=== PATIENT | female | born 1935 | race Caucasian/White ===

== ENCOUNTER 2016-12-06 13:42 | Emergency (ER) | payer OTHER ==
--- NOTE | 2016-12-06 13:58 | CPEKG ---
Heart Rate: 73 RR Interval: 822 P-R Interval: 164 QRSD Interval: 78 QT Interval: 416 QTC Interval: 459 P [place]: 74 QRS [place]: -34 T Wave [place]: 119 EKG Severity - ABNORMAL ECG - EKG Impression: SINUS RHYTHM EKG Impression: PROBABLE LEFT ATRIAL ABNORMALITY EKG Impression: LEFT AXIS DEVIATION EKG Impression: LEFT VENTRICULAR HYPERTROPHY Electronically Signed By: Antonino Martínez 06-Dec-2016 14:47:12
--- NOTE | 2016-12-06 14:07 | EDPHY ---
HPI/HX/ROS/PE/MDM Narrative: CHIEF COMPLAINT: Nausea and vomiting. HPI: This patient is an 81 y/o female arriving with her daughter via EMS complaining of acute onset vomiting and nausea with associated weakness that has since resolved. She states this morning she began vomiting after consuming a turmeric supplement and that this has happened "a million times" when taking vitamins. She reports once she begins vomiting, she cannot stop, and has associated weakness, chills, and diaphoresis. When these episodes occur, she generally requires abortive treatment at the ED. EMS administered 4mg IV Zofran that completely resolved her symptoms and upon initial assessment she reports she is "ready to walk out." She denies chest pain, fever, loss of consciousness , abdominal pain, recent antibiotic use, hematemesis, and hematochezia. REVIEW OF SYSTEMS: Aside from elements discussed in the HPI, a comprehensive 10- point review of systems was reviewed and is negative. PMH: Previous episodes of vomiting, hearing loss SOCIAL HISTORY: Daughter at bedside, originally from [place]. PHYSICAL EXAM: General:Patient is alert, in no acute distress. ENT:Eyes are normal to inspection. ENT inspection normal. Neck: Normal inspection. Full range of motion. Respiratory:No respiratory distress. Breath sounds normal bilaterally. Cardiovascular: Regular rate and rhythm. Strong peripheral pulses. Normal cap refill. Abdomen:The abdomen is nontender to palpation. There are no peritoneal signs. There are normal bowel sounds. Back: Normal to inspection. No tenderness to palpation. Skin: Normal color. No rash. Warm and dry. Extremities: Normal appearance. Full range of motion. Neuro: Oriented x3. Normal motor function. Normal sensory function. (Antonino Martínez) ED Course: This patient is an 81 y/o female who presents today following sudden onset uncontrollable vomiting following consumption of turmeric tablets this morning. She has had several previous episodes of similar symptoms after consuming vitamins. On initial assessment, she is completely asymptomatic and states she is ready to go home. Her abdomen is benign and exam is unremarkable. I offered further workup to determine the cause of her symptoms, which she declined. We discussed specific return precautions. I have written her a script for ODT Zofran to use in event of future episodes of nausea. She is comfortable with this plan. The 12 lead EKG was interpreted by myself. See hard copy and/or "tracemaster" electronic copy for interpretation. Sinus rhythm with left atrial abnormality. 14:41 As RN was obtaining another set of vital signs and temp, she reported that the patient is now shivering, having chills, and generally feeling poorly. We will hold on discharge. Plan for IV fluids and labs. I have signed the patient out to Dr. Sutton at 1500 pending essentially full workup. (Mauricio,Antonino Davila) 1500: The patient is signed out to me at change of shift by Dr. Martínez. I reviewed the case with Dr. Martínez. I reviewed Dr. Martínez needs note. I went personally evaluated the patient. She states that she thinks her symptoms are related to her taking tumor this morning. She used to have this happen to her frequently when taking vitamins. She stopped 1 year ago. She decided to take tumor care again today and had similar symptoms. When she initially arrived in the emergency department she states she was feeling much better. She then developed mild chills. She has no specific complaint of chest pain, shortness of breath, abdominal pain, nausea or vomiting. I agree with Dr. Martínez documentation. I reviewed the patient[place] laboratory [place] [address]. Her chemistry panel showed a mildly low bicarb and a elevated anion gap. Abdominal x-ray: The patient has multiple air-fluid levels. This could represent ileus or early obstruction. I discussed the results with the patient. On recheck the patient was doing well. She denies any abdominal pain. She denies shortness of breath or cough. Based on the patient's presentation, x-rays and laboratory findings I felt the patient should be admitted for observation. I discussed this with the patient and answered all her questions. Blood cultures were added. I discussed admission with the hospitalist service, Dr. Contreras. He accepted the patient. 1700: Dr. Contreras came to the emergency department to evaluate the patient. After his evaluation he requested we discharge patient home. He arrange close follow-up with Dr. Musa. He read the patient prescriptions. 17 10: I when re-evaluated the patient. She states she tolerated oral intake. She was feeling better. On repeat examination her abdomen was soft, nontender nondistended. She states she understands the recommendation by me for admission. She also understands the Dr. Contreras felt comfortable having her discharged home. The patient was competent. She was given warnings prior to leaving. She will return with worsening symptoms. (Diana Sutton) - Data Points Imaging Results: Imaging Impressions Abdomen X-Ray 12/06/16 14:43 Impression: 1. No significantly dilated loops of bowel with scattered air-fluid levels. Rule out mild ileus. If indicated, consider CT imaging for further characterization. Laboratory Results: Laboratory Results 12/06/16 13:43 12/06/16 13:43 12/06/16 12/06/16 13:43 13:43 WBC 17.24 10^3/uL H 10^3/uL (3.80-9.50) RBC 5.36 10^6/uL H 10^6/uL (4.18-5.33) Hgb 16.6 g/dL H g/dL (12.6-16.3) Hct 48.7 % H % (38.0-47.0) MCV 90.9 fL fL (81.5-99.8) MCH 31.0 pg pg (27.9-34.1) MCHC 34.1 g/dL g/dL (32.4-36.7) RDW 12.6 % % (11.5-15.2) Plt Count 337 10^3/uL 10^3/uL (150-400) MPV 10.8 fL fL (8.7-11.7) Neut % (Auto) 68.2 % % (39.3-74.2) Lymph % (Auto) 26.7 % % (15.0-45.0) [place] % (Auto) 4.1 % L % (4.5-13.0) Eos % (Auto) 0.2 % L % (0.6-7.6) Baso % (Auto) 0.3 % % (0.3-1.7) Nucleat RBC Rel Count 0.0 % % (0.0-0.2) Absolute Neuts (auto) 11.75 10^3/uL H 10^3/uL (1.70-6.50) Absolute Lymphs (auto) 4.60 10^3/uL H 10^3/uL (1.00-3.00) Absolute Monos (auto) 0.71 10^3/uL 10^3/uL (0.30-0.80) Absolute Eos (auto) 0.04 10^3/uL 10^3/uL (0.03-0.40) Absolute Basos (auto) 0.06 10^3/uL 10^3/uL (0.02-0.10) Absolute Nucleated RBC 0.00 10^3/uL 10^3/uL (0-0.01) Immature Gran % 0.5 % % (0.0-1.1) Seg Neutrophils % 38 % % Band Neutrophils % 26 % % Lymphocytes % 32 % % Monocytes % 2 % % Metamyelocytes % 1 % % Myelocytes % 1 % % Immature Gran # 0.08 10^3/uL 10^3/uL (0.00-0.10) Absolute Seg Neuts 6.55 10^/uL H 10^/uL (1.70-6.50) Absolute Band Neuts 4.48 10^3/uL H 10^3/uL (0.00-0.70) Absolute Lymphocytes 5.52 10^3/uL H 10^3/uL (1.00-3.00) Absolute Monocytes 0.34 10^3/uL 10^3/uL (0.30-0.80) Absolute Metamyelocyte 0.17 10^3/mL H 10^3/mL (0.00-0.00) Absolute Myelocytes 0.17 10^3/mL H 10^3/mL (0.00-0.00) RBC/WBC/PLT Morphology NORMAL (NORMAL) Platelet Estimate ADEQUATE (ADEQ) Smear Review By Pending Sodium 142 mEq/L mEq/L (134-144) Potassium 4.0 mEq/L mEq/L (3.5-5.2) Chloride 102 mEq/L mEq/L (97-110) Carbon Dioxide 21 mEq/l L mEq/l (22-31) Anion Gap 19 mEq/L H mEq/L (8-16) BUN 23 mg/dL mg/dL (7-23) Creatinine 0.9 mg/dL mg/dL (0.6-1.0) Estimated GFR > 60 Glucose 128 mg/dL H mg/dL (70-100) Calcium 10.8 mg/dL H mg/dL (8.5-10.4) Phosphorus 2.9 mg/dL mg/dL (2.5-4.5) Total Bilirubin 1.0 mg/dL mg/dL (0.1-1.4) Conjugated Bilirubin 0.5 mg/dL mg/dL (0.0-0.5) Unconjugated Bilirubin 0.5 mg/dL mg/dL (0.0-1.1) AST 33 IU/L IU/L (14-46) ALT 33 IU/L IU/L (9-52) Alkaline Phosphatase 83 IU/L IU/L (38-126) Troponin I < 0.012 ng/mL ng/mL (0-0.034) Total Protein 9.0 g/dL H g/dL (6.3-8.2) Albumin 5.2 g/dL H g/dL (3.5-5.0) Lipase 99.0 IU/L IU/L (23-300) Medications Given: Discontinued Medications Sodium Chloride (Ns) 1,000 mls @ 0 mls/hr IV ONCE ONE PRN Reason: Wide Open Stop: 12/06/16 14:43 Last Admin: 12/06/16 14:44 Dose: 1,000 mls Ondansetron HCl (Zofran) 4 mg IVP EDNOW ONE Stop: 12/06/16 14:43 Last Admin: 12/06/16 14:55 Dose: 4 mg General Time Seen by Provider: 12/06/16 14:05 Initial Vital Signs: Initial Vital Signs Heart Rate 78 12/06/16 13:42 Respiratory Rate 16 12/06/16 13:42 Blood Pressure 145/96 H 12/06/16 13:42 O2 Sat (%) 93 12/06/16 13:42 O2 Delivery Mode Room Air Allergies/Adverse Reactions: morphine Allergy (Verified 06/25/16 14:52) Home Medications: Medication Instructions Recorded Amlodipine Besylate 06/25/16 Hydrocodone/APAP 5/325 [[place] 1 - 2 tab PO Q4H PRN #10 tab 06/25/16 5/325] Lisinopril 06/25/16 Ondansetron HCl [Zofran] 4 mg PO Q4-6PRN PRN #10 tablet 06/25/16 Ondansetron Odt [Zofran Odt] 4 mg PO Q4PRN PRN #10 tab 12/06/16 Departure - Departure Disposition: Home, Routine, Self-Care Clinical Impression: Ileus Nausea & vomiting Qualifiers: Vomiting type: bilious vomiting Qualified Code(s): R11.14 - Bilious vomiting Leukocytosis Qualifiers: Leukocytosis type: other Qualified Code(s): D72.828 - Other elevated white blood cell count Condition: Good Instructions: Ondansetron (By mouth), Acute Nausea and Vomiting (ED) Additional Instructions: 1. Take Zofran as prescribed for nausea. Place the tablet under your tongue and let it dissolve. 2. Increase fluid intake. 3. Follow up with your primary care provider for symptoms unresolved in 2-3 days. 4. Return to the ED for recurrent vomiting and nausea, fever, pain, bloody bowel movements, or other worsening of condition. Return with increasing abdominal pain, nausea, vomiting, weakness or any other concerns. You need close follow-up with Dr. Musa. Call her office on Wednesday to make an appointment. Referrals: Amy Musa MD [Primary Care Provider] - 12/07/16 Prescriptions: Ondansetron Odt [Zofran Odt] 4 mg PO Q4PRN PRN #10 tab PRN Reason: Nausea Report Scribed for: Antonino Martínez Report Scribed by: Rebecca Sloan Date of Report: 12/06/16 Time of Report: 14:07 Physician Review and Approval Statement: Portions of this note were transcribed by an ED scribe. I personally performed the history, physical exam, and medical decision making; and confirm the accuracy of the information in the transcribed note.
[2016-12-06] MEDS ORDERED: ONDANSETRON 4 MG/2 ML VIAL IVP ONE (14:42)
[2016-12-06] MEDS ORDERED: NS 1,000 ML IV ONE (14:42)
[2016-12-06 14:54] LABS: ALANINE AMINOTRANSFERASE 33 IU/L (9-52); ALBUMIN 5.2 g/dL (3.5-5.0); ALKALINE PHOSPHATASE 83 IU/L (38-126); ANION GAP 19 mEq/L (8-16); ASPARTATE AMINOTRANSFERASE 33 IU/L (14-46); BILIRUBIN-CONJUGATED 0.5 mg/dL (0.0-0.5); BILIRUBIN-UNCONJUGATED 0.5 mg/dL (0.0-1.1); CALCIUM 10.8 mg/dL (8.5-10.4); CARBON DIOXIDE 21 mEq/l (22-31); CHLORIDE 102 mEq/L (97-110); CREATININE 0.9 mg/dL (0.6-1.0); GLOMERULAR FILTRATION RATE > 60; GLUCOSE 128 mg/dL (70-100); SODIUM 142 mEq/L (134-144)
[2016-12-06 14:58] LABS: % IMMATURE GRANULYOCYTES 0.5 % (0.0-1.1); ABSOLUTE IMMATURE GRANULOCYTES 0.08 10^3/uL (0.00-0.10); ADD DIFF? NO; ADD MORPH? NO; ADD SCAN? YES; ATYPICAL LYMPHOCYTE FLAG 10 (0-99); FRAGMENT RBC FLAG 0 (0-99); HEMATOCRIT 48.7 % (38.0-47.0); HEMOGLOBIN 16.6 g/dL (12.6-16.3); LIPEMIA HEMOLYSIS FLAG 90 (0-99); MEAN CELL HEMOGLOBIN CONCENTR. 34.1 g/dL (32.4-36.7); MEAN CELL VOLUME 90.9 fL (81.5-99.8); MEAN PLATELET VOLUME 10.8 fL (8.7-11.7); PLATELET CLUMPS FLAG 10 (0-99); PLATELET COUNT 337 10^3/uL (150-400); RED BLOOD CELL COUNT 5.36 10^6/uL (4.18-5.33); RED CELL DISTRIBUTION WIDTH 12.6 % (11.5-15.2)
[2016-12-06 15:05] LABS: TROPONIN I < 0.012 ng/mL (0-0.034)
[2016-12-06 15:16] LABS: LEFT SHIFT FLG 200 (0-99)
[2016-12-06 15:33] VITALS: TEMP 97.3
[2016-12-06 15:34] LABS: SCAN POSITIVE
[2016-12-06 15:37] LABS: PLATELET ESTIMATE ADEQUATE (ADEQ)
[2016-12-06] MEDS ORDERED: ONDANSETRON DISINTEGRATING 4 MG TAB PO PRN (16:13)
[2016-12-06] MEDS ORDERED: METOCLOPRAMIDE 10 MG/2 ML VIAL IVP PRN (16:13)
[2016-12-06] MEDS ORDERED: ONDANSETRON 4 MG/2 ML VIAL IVP PRN (16:13)
[2016-12-06] MEDS ORDERED: METOCLOPRAMIDE 10 MG TAB PO PRN (16:13)
[2016-12-06] MEDS ORDERED: ACETAMINOPHEN 325 MG TAB PO PRN (16:13)
[2016-12-06] MEDS ORDERED: NS 1,000 ML IV SCH (16:15)
--- NOTE | 2016-12-06 17:01 | PDCONSULT ---
Sr. Manager Note: Consult H&P PCP: Dr. Musa Chief complaint: acute vomiting HPI: 81-year-old female presenting with acute vomiting characterized as bilious with associated nausea, generalized weakness, chills, visible diaphoresis. Onset of symptoms was on the day of this presentation and duration was persistent thereafter until the symptoms were alleviated by Zofran in the emergency department. The patient received IV fluids and she reports that her symptoms have improved. Her last bowel movement was on the day of presentation and was characterized as liquid. Prior to her onset of symptoms, the patient reports that she had taken a couple pills of tumeric, which she does not utilize regularly. She reports that in the past she has had GI symptoms when she takes vitamins and supplements. Review of systems: Positive for nausea, vomiting, generalized weakness, chills , visible diaphoresis, all other 10 point review of systems otherwise negative. Past medical history: Hypertension, right hip fracture Past surgical history: February of 2015 right hip surgery Home medications: currently on reconciled, previously have include lisinopril and amlodipine Social history: Patient does not drink alcohol, does not smoke, she lives locally, she is independent in her ADLs Family history: Patient's daughter of cancer, unknown origin Allergies: Morphine, unclear reaction Physical exam: Heart rate 78, systolic blood pressure 145, respirations 16, O2 sat 93% on room air, temperature initially 34.6 degree C, subsequently 36.3 degree C on recheck; rate is regular, regular rhythm, no murmurs or gallops; Abdomen is soft mildly distended, nontender, bowel sounds are active but quiet; patient is pain free, alert awake oriented x3, no apparent distress Data: White blood cell count 67043, hemoglobin 16.6, total protein 9, albumin 5.2, serum bicarb 21, creatinine 0.9, potassium 4, anion gap 19, troponin negative, abdominal x-ray demonstrating diffuse air-fluid levels without focal area of obstruction, consistent with ileus, EKG demonstrating normal sinus mechanism, similar to prior, outside records include 02/07/2016 HIDA scan demonstrating no cholecystitis but gallbladder dyskinesis, white blood cell count from 06/25/16 9,200 Assessment: 81-year-old female presents with acute vomiting and chills in the setting of ileus, possible gastroenteritis Plan: 1. Vomiting. Most likely secondary to either ileus or possible gastroenteritis , resulting in stress demargination and leukocytosis without clear evidence of infection. Her symptoms coincided with ingestion of tumeric, but I do not believe that she is experiencing acute tumeric toxicity, as her symptoms have subsided with supportive care including IV fluids and Zofran. Although her abdominal x-ray did demonstrate diffuse air-fluid levels, this may be secondary to GI irritation and no overt ileus, as the patient has moved her bowels within the last several hours and she is currently not expressing any abdominal tenderness on our exam. It may be that the patient simply has gastroenteritis with coincidental concomitant ingestion of supplement, resulting in the above mentioned symptoms. - recommend dietary trial of oral solids and liquids in the emergency department if the patient is successful, she will discharge home - I have advised the patient that clear liquids and bland foods should be for primary substance for the next 24-48 hours to ensure that whenever GI irritants she has been experiencing is allowed to clear without further stress or stimulation - we have provided the patient with as needed Zofran to use supportively at home 2. Metabolic Acidosis. Acute, mild anion gap, 2/2 GI loses - I have encouraged the patient to have repeat labs drawn in 48 hours with follow-up by her primary care provider to ensure that her leukocytosis has resolved and her mild anion gap acidosis has completely resolved as well - it should be noted that although her anion gap is 19 this is only marginally elevated from would be anticipated given that the anion gap is derived from patient's total albumin level which is elevated at 5.2 at this time; consequently, the patient's anticipated anion gap is between 15 and 16 and, with a gap of 19, this mild acidosis can be easily explained by her recent instances of vomiting and loose BMs The patient is currently stable to be discharged home if she is able to tolerate oral solids and liquids, and she is requesting to do so. Advised to follow up closely with her primary care provider and to return if she experiences recurrence of symptoms not controlled by Zofran. Greater than 40 minutes spent with the patient, greater than 50% of the time spent counseling regarding the above as well as coordinating her care.
[2016-12-06 17:27] VITALS: BP 155/77; PULSE 87; RESP 16; O2SAT 98
[2016-12-07] MEDS ORDERED: ENOXAPARIN 40 MG/0.4 ML SYR SC SCH (09:00)
== END 2016-12-06 17:27 | disposition home or self-care (01) ==
LOC: EDUNIT# → UNDOADMOB 16:02
DX: K56.7 Ileus, unspecified (principal); D72.828 Other elevated white blood cell count
CPT/HCPCS: 74000; 93005; 96361; 96374; 99285; J2405

== ENCOUNTER → 2017-05-19 | Outpatient (CLI) | payer OTHER | LOC: FIMAGING 14:01 | PROVIDERS: ATTEND Orthopaedic Surgery | DX: Z01.818 Encounter for other preprocedural examination (principal); M17.11 Unilateral primary osteoarthritis, right knee; M71.21 Synovial cyst of popliteal space [Baker], right knee; M25.461 Effusion, right knee ==

== ENCOUNTER 2017-06-02 12:15 | Observation (INO) | payer OTHER ==
[2017-06-16] MEDS ORDERED: ROPIVACAINE 0.2% 80 MG, EPINEPHrine 0.2 MG, KETOROLAC TROMETHAMINE 30 MG in BAG 0 ML IU ONE ×2 (06:00→07:15)
[2017-06-16] MEDS ORDERED: TRANEXAMIC ACID 3,000 MG in NS 50 ML IRR ONE (06:00)
[2017-06-16] MEDS ORDERED: DEXAMETHASONE 4 MG/ML VIAL IVP ONE (06:25)
[2017-06-16] MEDS ORDERED: ACETAMINOPHEN 325 MG TAB PO ONE (06:25)
[2017-06-16] MEDS ORDERED: ceFAZolin 2 GM/SWFI 2 GM/20 ML SYR IVP ONE (06:25)
[2017-06-16] MEDS ORDERED: FAMOTIDINE 20 MG TAB PO ONE (06:25)
[2017-06-16] MEDS ORDERED: TRANEXAMIC ACID 3,000 MG/50 ML BAG IRR ONE (06:33)
[2017-06-16] MEDS ORDERED: LR 1,000 ML IV ONE (06:34)
[2017-06-16] MEDS ORDERED: VANCOMYCIN 1 GM VIAL ONE (06:34)
[2017-06-16] MEDS ORDERED: MIDAZOLAM 2 MG/2 ML VIAL IVP ONE (06:59)
--- NOTE | 2017-06-16 07:03 | PDANEPAE ---
ANE History of Present Illness DJD R knee, s/f R partial knee arthroplasty ANE Past Medical History - Cardiovascular History Hx Hypertension: Yes Hx Arrhythmias: No Hx Chest Pain: No Hx Coronary Artery / Peripheral Vascular Disease: No Hx CHF / Valvular Disease: No Hx Palpitations: No Cardiovascular History Comment: pcp monitors bp - Pulmonary History Hx COPD: No Hx Asthma/Reactive Airway Disease: No Hx Recent Upper Respiratory Infection: No Hx Oxygen in Use at Home: No Hx Sleep Apnea: No Sleep Apnea Screening Result - Last Documented: Negative - Neurologic History Hx Cerebrovascular Accident: No Hx Seizures: No Hx Dementia: No - Endocrine History Hx Diabetes: No - Renal History Hx Renal Disorders: No - Liver History Hx Hepatic Disorders: No - Neurological & Psychiatric Hx Hx Neurological and Psychiatric Disorders: No - Cancer History Hx Cancer: No - Congenital Disorder History Hx Congenital Disorders: No - GI History Hx Gastrointestinal Disorders: Yes Gastrointestinal History Comment: hx of reflux. bouts of constipation. hx of hemorrhoidectomy. 2/3rds of stomach removed in 1982 - Other Health History Other Health History: wears glasses. wears bilateral hearing aides. osteoarthritis - Chronic Pain History Chronic Pain: No - Surgical History Prior Surgeries: jun 2016 right wrist surgery. 03/11/[address] Right hip repair with Dr. Hernandez- [employer]. stomach surgery 1982. hysterectomy 1983. hemorrhoidectomy ANE Review of Systems Review of Systems: - Exercise capacity METS (RN): 4 METS (recent 5K) ANE Patient History - Allergies Allergies/Adverse Reactions: No Known Allergies Allergy (Verified 06/09/17 16:00) - Home Medications Home medications: home medication list seen and reviewed Home Medications: Lisinopril [Zestril 20 mg (*)] 20 mg PO HS 06/25/16 [Last Taken Unknown] amLODIPine BESYLATE [Norvasc 2.5 mg (*)] 2.5 mg PO HS 06/25/16 [Last Taken Unknown] Alendronate Sodium [Fosamax 70 MG (*)] 70 mg PO SA@0700 05/17/17 [Last Taken Unknown] Herbals/Supplements -Info Only 1 ea PO DAILY 05/17/17 [Last Taken Unknown] Ibuprofen [Motrin (*)] 400 mg PO DAILY PRN 05/17/17 [Last Taken Unknown] - NPO status NPO Status: no food or drink >8 hours (except pills at 0655) NPO Since - Liquids (Date): 06/15/17 NPO Since - Liquids (Time): 22:00 NPO Since - Solids (Date): 06/15/17 NPO Since - Solids (Time): 19:00 - Anes Hx Anes Hx: no prior problems - Smoking Hx Smoking Status: Never smoked - Alcohol Use Alcohol Use: Rarely - Family Anes Hx Family Anes Hx: none Family Hx Anesthesia Complications: none ANE Labs/Vital Signs - Labs - CBC WBC: reveiwed and okay - Vital Signs Blood Pressure: 159/74 Heart Rate: 64 Respiratory Rate: 16 O2 Sat (%): 96 Height: 169.55 cm Weight: 60.781 kg ANE Physical Exam - Airway Neck exam: decreased ROM Mallampati Score: Class 1 Mouth exam: normal dental/mouth exam - Pulmonary Pulmonary: no respiratory distress - Cardiovascular Cardiovascular: regular rate and rhythym - ASA Status ASA Status: II ANE Anesthesia Plan Anesthesia Plan: spinal (R/B/A explained and pt. agress to proceed) Regional Anesthesia: single shot NB (adductor canal block)
--- NOTE | 2017-06-16 07:10 | PDHPUP ---
History & Physical Update H&P update statement: This history and physical update is based on an assessment of the patient which was completed after admission or registration (within 24 hours), but prior to the surgery/procedure. H&P update: H&P reviewed & patient examined, no change in patient's condition since H&P completed
[2017-06-16] MEDS ORDERED: PROPOFOL/EMULSION 500 MG/50 ML BOTTLE IV ONE (07:13)
[2017-06-16] MEDS ORDERED: fentaNYL 100 MCG/2 ML INJ ONE (07:13)
[2017-06-16] MEDS ORDERED: ONDANSETRON 4 MG/2 ML VIAL ONE (07:32)
[2017-06-16] MEDS ORDERED: ONDANSETRON 4 MG/2 ML VIAL IVP PRN ×2 (08:02→08:26)
[2017-06-16] MEDS ORDERED: LR 500 ML IV PRN (08:02)
[2017-06-16] MEDS ORDERED: NALOXONE HCL 0.4 MG/ML INJ IVP PRN (08:02)
[2017-06-16] MEDS ORDERED: METOCLOPRAMIDE 10 MG/2 ML VIAL IVP PRN ×2 (08:02→08:26)
[2017-06-16] MEDS ORDERED: ACETAMINOPHEN 500 MG TAB PO PRN (08:02)
[2017-06-16] MEDS ORDERED: HYDROCODONE/APAP 5/325 TAB PO PRN (08:02)
[2017-06-16] MEDS ORDERED: OXYCODONE/APAP 5/325 TAB PO PRN (08:02)
[2017-06-16] MEDS ORDERED: fentaNYL 100 MCG/2 ML INJ IVP PRN (08:02)
[2017-06-16] MEDS ORDERED: PROMETHAZINE HCL 25 MG/ML INJ IVP PRN ×2 (08:02→08:26)
[2017-06-16] MEDS ORDERED: ALBUTEROL 3 ML DEYVIAL IH PRN (08:02)
[2017-06-16] MEDS ORDERED: MEPERIDINE 25 MG/ML SYR IVP PRN (08:02)
[2017-06-16] MEDS ORDERED: DEXAMETHASONE 4 MG/ML VIAL IVP PRN (08:02)
[2017-06-16] MEDS ORDERED: LABETALOL HCL 50 MG/10 ML SYR IVP PRN (08:02)
[2017-06-16] MEDS ORDERED: LACTULOSE 20 GM/30 ML UDCUP PO PRN (08:26)
[2017-06-16] MEDS ORDERED: oxyCODONE IR 5 MG TAB PO PRN (08:26)
[2017-06-16] MEDS ORDERED: MAGNESIUM HYDROXIDE 30 ML UDCUP PO PRN (08:26)
[2017-06-16] MEDS ORDERED: TEMAZEPAM 15 MG CAP PO PRN (08:26)
[2017-06-16] MEDS ORDERED: DIPHENOXYLATE/ATROPINE LOMOTIL 1 TAB PO PRN (08:26)
[2017-06-16] MEDS ORDERED: CYCLOBENZAPRINE 10 MG TAB PO PRN (08:26)
[2017-06-16] MEDS ORDERED: POLYETHYLENE GLYCOL 3350 17 GM PKT PO PRN (08:26)
[2017-06-16] MEDS ORDERED: PROMETHAZINE HCL 25 MG SUPPR PR PRN (08:26)
[2017-06-16] MEDS ORDERED: ONDANSETRON DISINTEGRATING 4 MG TAB PO PRN (08:26)
[2017-06-16] MEDS ORDERED: BISACODYL 10 MG SUPP PR PRN (08:26)
[2017-06-16] MEDS ORDERED: diphenhydrAMINE 25 MG CAP PO PRN (08:26)
--- NOTE | 2017-06-16 08:26 | POSTOPPROG ---
Post Op Note Date of Operation: 06/16/17 Surgeon: Ghada Salgado Beam House Inspector: cindy salgado Anesthesiologist: dr. ambriz Anesthesia: Spinal, Other (Specify) (adductor canal block) Pre-op Diagnosis: right knee OA Post-op Diagnosis: same Indication: right knee pain due to OA that failed conservative measures Procedure: R med MPL Findings: severe medial knee OA Inf/Abcess present in the surg proc area at time of surgery?: No EBL: 50-100
[2017-06-16] MEDS ORDERED: LR 1,000 ML IV SCH (08:30)
--- NOTE | 2017-06-16 10:54 | POSTANESTH ---
Post Anesthetic Evaluation Cardiovascular Status: Normal, Stable Respiratory Status: Normal, Stable Level of Consciousness/Mental Status: Can Participate in Eval Pain Control: Adequate, Prn Tx Ordered Nausea/Vomiting Control: Adequate, Prn Tx Ordered Complications Possibly Related to Anesthesia: None Noted
[2017-06-16] MEDS: ACETAMINOPHEN 325 MG TAB PO SCH ×3 (13:00→23:59)
[2017-06-16] MEDS: SENNOSIDES/DOCUSATE SODIUM TAB PO SCH ×2 (14:25→21:35)
[2017-06-16] MEDS: ceFAZolin 2 GM/DEXTROSE 100 ML IV SCH ×2 (14:28→21:36)
[2017-06-16] MEDS ORDERED: LISINOPRIL 20 MG TAB PO SCH (21:00)
[2017-06-16] MEDS: FAMOTIDINE 20 MG TAB PO SCH (21:34)
[2017-06-17 03:08] VITALS: TEMP 98.6
--- NOTE | 2017-06-17 05:42 | GOP ---
[f rep st] OPERATIVE REPORT DATE OF OPERATION: 06/16/2017 SURGEON: Parth Diez MD PATIENT REGISTRATION CLERK: ARUN Louise. ANESTHESIA: Spinal. PREOPERATIVE DIAGNOSIS: Right knee osteoarthritis. POSTOPERATIVE DIAGNOSIS: Right knee osteoarthritis. PROCEDURE PERFORMED: Right medial compartment partial replacement with computer navigation and robotic assist. FINDINGS: severe medial DJD ESTIMATED BLOOD LOSS: 30 cc. INDICATIONS: This is an 81-year-old woman with progressive pain of the right knee unresponsive to conservative care. Risks and benefits of surgical intervention were explained in detail. DESCRIPTION OF PROCEDURE: The patient was brought to the operating room and placed on the table in supine position. Spinal anesthesia was induced without difficulty. A pneumatic tourniquet was applied about the right proximal thigh and the leg was prepped and draped in sterile fashion. Attention was turned first to the distal aspect of the right femur. At 3 cm proximal to the lateral rise of the femur, 2 percutaneous half pins were placed for fixation of the femoral array. In a similar fashion, 2 pins were placed anterolateral on the tibia for fixation of the tibial array. External land marking and registration of the hip center was performed without difficulty. After exsanguination by elevation, the tourniquet was inflated to 250 mmHg. Incision was made from the tibial tuberosity to the superior pole of the patella. Dissection was carried out through the subcutaneous tissue to the deep fascia using Bovie electrocautery for hemostasis. Medial parapatellar arthrotomy was carried out to the superior pole of the patella. The medial collateral ligament was elevated and the infrapatellar fat pad was resected. Internal femoral and tibial registration was carried out without difficulty and the femoral and tibial checkpoints were placed and verified for accuracy. Attention was turned to the femur. The foot print for the size 4 femoral component was cut with the 6 mm bur using the [employer] robotic system and verified for accuracy against the CT based plan. The hole was cut for the femoral post. In a similar fashion, the 6 mm bur was used to cut the foot print for the size 4 tibial component using the [employer] system and verified for accuracy against the CT based plan. Attention was turned to the posterior aspect of the knee and remnants of the medial meniscus were excised. The posterior capsule was injected with ropivacaine, epinephrine and Toradol. Trial reduction was carried out and there was excellent range of motion, alignment and stability using the size 4 femoral component and the size 4 tibial component, 4 x 8 mm polyethylene. All trials were then removed. The joint was thoroughly irrigated and carefully dried. One package of cement and 1 gram of vancomycin were mixed in the vacuum mixer and placed on the fixation surfaces of all components. The components were implanted and all excess cement was thoroughly removed. Implant placement was verified against the CT view plan and found to be excellent. The tourniquet was deflated and all bleeders were coagulated. The wound was thoroughly irrigated and closed using interrupted sutures of 2-0 Vicryl for the joint capsule. The subcu was closed with 3-0 Vicryl and the skin with 4-0 Monocryl. Dermabond and Steri-Strips were applied, followed by a compressive dressing. The patient was then moved from the operating room to the recovery room in good condition, having tolerated the procedure well. CASE CLASSIFICATION: Clean. /[id number]/MODL MTDD
--- NOTE | 2017-06-17 05:42 | GOP ---
[f rep st] OPERATIVE REPORT DATE OF OPERATION: 06/16/2017 SURGEON: Parth Diez MD TOOL LAPPER HAND: ARUN Louise. ANESTHESIA: Spinal. PREOPERATIVE DIAGNOSIS: Right knee osteoarthritis. POSTOPERATIVE DIAGNOSIS: Right knee osteoarthritis. PROCEDURE PERFORMED: Right medial compartment partial replacement with computer navigation and robotic assist. FINDINGS: severe medial DJD ESTIMATED BLOOD LOSS: 30 cc. INDICATIONS: This is an 81-year-old woman with progressive pain of the right knee unresponsive to conservative care. Risks and benefits of surgical intervention were explained in detail. DESCRIPTION OF PROCEDURE: The patient was brought to the operating room and placed on the table in supine position. Spinal anesthesia was induced without difficulty. A pneumatic tourniquet was applied about the right proximal thigh and the leg was prepped and draped in sterile fashion. Attention was turned first to the distal aspect of the right femur. At 3 cm proximal to the lateral rise of the femur, 2 percutaneous half pins were placed for fixation of the femoral array. In a similar fashion, 2 pins were placed anterolateral on the tibia for fixation of the tibial array. External land marking and registration of the hip center was performed without difficulty. After exsanguination by elevation, the tourniquet was inflated to 250 mmHg. Incision was made from the tibial tuberosity to the superior pole of the patella. Dissection was carried out through the subcutaneous tissue to the deep fascia using Bovie electrocautery for hemostasis. Medial parapatellar arthrotomy was carried out to the superior pole of the patella. The medial collateral ligament was elevated and the infrapatellar fat pad was resected. Internal femoral and tibial registration was carried out without difficulty and the femoral and tibial checkpoints were placed and verified for accuracy. Attention was turned to the femur. The foot print for the size 4 femoral component was cut with the 6 mm bur using the avandeo robotic system and verified for accuracy against the CT based plan. The hole was cut for the femoral post. In a similar fashion, the 6 mm bur was used to cut the foot print for the size 4 tibial component using the avandeo system and verified for accuracy against the CT based plan. Attention was turned to the posterior aspect of the knee and remnants of the medial meniscus were excised. The posterior capsule was injected with ropivacaine, epinephrine and Toradol. Trial reduction was carried out and there was excellent range of motion, alignment and stability using the size 4 femoral component and the size 4 tibial component, 4 x 8 mm polyethylene. All trials were then removed. The joint was thoroughly irrigated and carefully dried. One package of cement and 1 gram of vancomycin were mixed in the vacuum mixer and placed on the fixation surfaces of all components. The components were implanted and all excess cement was thoroughly removed. Implant placement was verified against the CT view plan and found to be excellent. The tourniquet was deflated and all bleeders were coagulated. The wound was thoroughly irrigated and closed using interrupted sutures of 2-0 Vicryl for the joint capsule. The subcu was closed with 3-0 Vicryl and the skin with 4-0 Monocryl. Dermabond and Steri-Strips were applied, followed by a compressive dressing. The patient was then moved from the operating room to the recovery room in good condition, having tolerated the procedure well. CASE CLASSIFICATION: Clean. /[id number]/MODL MTDD
[2017-06-17] MEDS: ACETAMINOPHEN 325 MG TAB PO SCH (06:42)
[2017-06-17 07:39] VITALS: BP 139/58; PULSE 58; RESP 16; O2SAT 96
[2017-06-17] MEDS: ASPIRIN 325 MG TAB PO SCH ×2 (09:33)
[2017-06-17] MEDS: FAMOTIDINE 20 MG TAB PO SCH (09:33)
[2017-06-17] MEDS: SENNOSIDES/DOCUSATE SODIUM TAB PO SCH (09:33)
--- NOTE | 2017-06-17 10:05 | SOAPPROG ---
SOAP Progress Note Assessment/Plan: Assessment: Patient is doing well POD 1 s/p R med MPL Pain management: pain is well controlled on oral pain meds. VTE ppx: recommend aspirin daily for 3 weeks, cont JHOAN and SCDs Anemia: level is expected initially postop. Asymptomatic. Continue to monitor D/c planning: d/c to home today pending release from PT Plan: 06/17/17 10:04 Subjective: Sandhya is doing well today, denies SOB, chest pain and n/v. Objective: Vital Signs Temp Pulse Resp BP Pulse Ox 37.0 C 58 L 16 139/58 H 96 06/17/17 07:36 06/17/17 07:36 06/17/17 07:36 06/17/17 07:36 06/17/17 07:36 Laboratory Results 06/17/17 05:03 06/16/17 06/17/17 06/18/17 05:59 05:59 05:59 Intake Total 950 Output Total 21 Balance 929 RLE; incision dressing is clean and dry, NVI, +pf/df ICD10 Worksheet Patient Problems: Problems Problem Status Onset Primary localized osteoarthritis of right knee Acute Hip fracture, right Acute
--- NOTE | 2017-06-17 11:17 | ASDISCHSUM ---
Discharge Information Plan Status:Home with No Needs Medically Cleared to Leave: Discharge Date:06/17/2017 11:05 AM CM D/C Disposition:Home, Routine, Self-Care ADT D/C Disposition:Home, Routine, Self-Care Projected Discharge Date:06/17/2017 11:05 AM Transportation at D/C: Discharge Delay Reason: Follow-Up Date:06/17/2017 11:05 AM Discharge Slot: Final Diagnosis: Placement Information Patient Contact Information Contact Name:RIGO Relationship:Daughter Address[place] [facility] Phone: [facility] Code: Email: Financial Information Financial Class: Primary Plan Desc:MEDICARE OUTPATIENT Primary Plan Number:[id number] Secondary Plan Desc:[employer] PPO AND EPO Secondary Plan Number:[id number] Assessment Information Intervention Information Intervention Type:*CHARLES-Signed Date of Service:06/17/2017 10:33 AM Patient Type:Observation Staff Member:Petty Vregara Hours: Discipline: Severity: Comment:
--- NOTE | 2017-06-17 11:17 | ASDISCHSUM ---
Discharge Information Plan Status:Home with No Needs Medically Cleared to Leave: Discharge Date:06/17/2017 11:05 AM CM D/C Disposition:Home, Routine, Self-Care ADT D/C Disposition:Home, Routine, Self-Care Projected Discharge Date:06/17/2017 11:05 AM Transportation at D/C: Discharge Delay Reason: Follow-Up Date:06/17/2017 11:05 AM Discharge Slot: Final Diagnosis: Placement Information Patient Contact Information Contact Name:RIGO Relationship:Daughter Address: City: [place] [facility] Phone: [facility] Code: Email: Financial Information Financial Class: Primary Plan Desc:MEDICARE OUTPATIENT Primary Plan Number:[id number] Secondary Plan Desc:[employer] PPO AND EPO Secondary Plan Number:[id number] Assessment Information Intervention Information Intervention Type:*CHARLES-Signed Date of Service:06/17/2017 10:33 AM Patient Type:Observation Staff Member:Petty Vergara Hours: Discipline: Severity: Comment:
--- NOTE | 2017-06-17 11:17 | ASDISCHSUM ---
Discharge Information Plan Status:Home with No Needs Medically Cleared to Leave: Discharge Date:06/17/2017 11:05 AM CM D/C Disposition:Home, Routine, Self-Care ADT D/C Disposition:Home, Routine, Self-Care Projected Discharge Date:06/17/2017 11:05 AM Transportation at D/C: Discharge Delay Reason: Follow-Up Date:06/17/2017 11:05 AM Discharge Slot: Final Diagnosis: Placement Information Patient Contact Information Contact Name:RIGO Relationship:Daughter Address: City: [facility] Phone: [facility] Code: Email: Financial Information Financial Class: Primary Plan Desc:MEDICARE OUTPATIENT Primary Plan Number:[id number] Secondary Plan Desc:[employer] PPO AND EPO Secondary Plan Number:[id number] Assessment Information Intervention Information Intervention Type:*CHARLES-Signed Date of Service:06/17/2017 10:33 AM Patient Type:Observation Staff Member:Petty Vergara Hours: Discipline: Severity: Comment:
[2017-06-19] MEDS ORDERED: ALENDRONATE SODIUM 70 MG TAB PO SCH (07:00)
== END 2017-06-17 11:05 | disposition home or self-care (01) ==
LOC: INTOOBSV 06-16 06:04 → F3N 06-16 06:04
PROVIDERS: ADMIT Orthopaedic Surgery; ATTEND Orthopaedic Surgery
PROC: 0SRC0JZ Replacement of Right Knee Joint with Synthetic Substitute, Open Approach (ICD-10-PCS; principal; 2017-06-16 07:15)
DX: M17.11 Unilateral primary osteoarthritis, right knee (principal)
CPT/HCPCS: 27446; 73560; 97110; 97116; 97161; 97165; 97530; C1713; C1776; G8978; G8979; G8980; G8987; G8988; G8989; J0171; J0690; J1100; J1885; J2250; J2405; J2704; J2795; J3010; J3370

== ENCOUNTER → 2017-06-18 | Outpatient (CLI) | payer OTHER | LOC: BMCIMAGING 11:57 | PROVIDERS: ATTEND Internal Medicine | DX: R91.8 Other nonspecific abnormal finding of lung field (principal); Z98.890 Other specified postprocedural states ==

== ENCOUNTER → 2017-07-21 | Outpatient (CLI) | payer OTHER | LOC: FIMAGING 10:52 | PROVIDERS: ATTEND Internal Medicine | DX: Z12.31 Encounter for screening mammogram for malignant neoplasm of breast (principal) | CPT/HCPCS: G0202 ==

== ENCOUNTER 2017-08-24 10:00 | Observation (INO) | payer OTHER ==
[2017-09-22] MEDS ORDERED: ROPIVACAINE 0.2% 80 MG, EPINEPHrine 0.2 MG, KETOROLAC TROMETHAMINE 30 MG in SYRINGE 0 ML IU ONE (06:00)
[2017-09-22] MEDS ORDERED: TRANEXAMIC ACID 3,000 MG in NS (SYRINGE) 50 ML IRR ONE (06:00)
[2017-09-22] MEDS ORDERED: VANCOMYCIN 1 GM VIAL ONE (07:10)
[2017-09-22] MEDS ORDERED: TRANEXAMIC ACID 3,000 MG/50 ML BAG IRR ONE (07:10)
[2017-09-22] MEDS ORDERED: LIDOCAINE 1% 2 ML INJ ID PRN (07:42)
[2017-09-22] MEDS ORDERED: DEXAMETHASONE 4 MG/ML VIAL IVP ONE (07:42)
[2017-09-22] MEDS ORDERED: ACETAMINOPHEN 325 MG TAB PO ONE (07:42)
[2017-09-22] MEDS ORDERED: FAMOTIDINE 20 MG TAB PO ONE (07:42)
[2017-09-22] MEDS ORDERED: LR 1,000 ML IV ONE (07:42)
[2017-09-22] MEDS ORDERED: ceFAZolin 2 GM/SWFI 2 GM/20 ML SYR IVP ONE (07:42)
--- NOTE | 2017-09-22 08:54 | PDANEPAE ---
ANE Past Medical History - Cardiovascular History Hx Hypertension: Yes Hx Arrhythmias: No Hx Chest Pain: No Hx Coronary Artery / Peripheral Vascular Disease: No Hx CHF / Valvular Disease: No Hx Palpitations: No Cardiovascular History Comment: pcp monitors bp - Pulmonary History Hx COPD: No Hx Asthma/Reactive Airway Disease: No Hx Recent Upper Respiratory Infection: No Hx Oxygen in Use at Home: No Hx Sleep Apnea: No Sleep Apnea Screening Result - Last Documented: Negative - Neurologic History Hx Cerebrovascular Accident: No Hx Seizures: No Hx Dementia: No - Endocrine History Hx Diabetes: No - Renal History Hx Renal Disorders: No - Liver History Hx Hepatic Disorders: No - Neurological & Psychiatric Hx Hx Neurological and Psychiatric Disorders: No - Cancer History Hx Cancer: No - Congenital Disorder History Hx Congenital Disorders: No - GI History Hx Gastrointestinal Disorders: Yes Gastrointestinal History Comment: hx of reflux. bouts of constipation. hx of hemorrhoidectomy. 2/3rds of stomach removed in 1982 - Other Health History Other Health History: wears glasses. wears bilateral hearing aides. osteoarthritis - Chronic Pain History Chronic Pain: No - Surgical History Prior Surgeries: jun 2016 right wrist surgery. 03/11/15 Right hip repair with Dr. Hernandez- brendon playing [employer]. stomach surgery 1982. hysterectomy 1983. hemorrhoidectomy ANE Review of Systems Review of Systems: - Exercise capacity METS (RN): 4 METS ANE Patient History - Allergies Allergies/Adverse Reactions: No Known Allergies Allergy (Verified 06/09/17 16:00) - Home Medications Home Medications: amLODIPine BESYLATE [Norvasc 2.5 mg (*)] 2.5 mg PO HS 06/25/16 [Last Taken 09/21 21:30] Alendronate Sodium [Fosamax 70 MG (*)] 70 mg PO TH@0700 05/17/17 [Last Taken 09/02] Calcium Carbonate [Oyster Shell Calcium 500 mg (*)] 500 mg PO DAILY 08/25/17 [ Last Taken 09/21/17 21:30] Cholecalciferol Vit D3 [Vitamin D3 (*)] 1,000 - 2,000 units PO DAILY 08/25/17 [ Last Taken 09/21/17 21:30] Lisinopril [Zestril 40 mg (*)] 40 mg PO HS 08/25/17 [Last Taken 09/21/17 21:30] - NPO status NPO Since - Liquids (Date): 09/21/17 NPO Since - Liquids (Time): 21:30 NPO Since - Solids (Date): 09/21/17 NPO Since - Solids (Time): 21:30 - Smoking Hx Smoking Status: Never smoked - Family Anes Hx Family Hx Anesthesia Complications: none ANE Labs/Vital Signs - Vital Signs Blood Pressure: 131/72 Heart Rate: 61 Respiratory Rate: 16 O2 Sat (%): 97 Height: 170.18 cm Weight: 58.967 kg ANE Physical Exam - Airway Neck exam: FROM Mallampati Score: Class 2 Mouth exam: normal dental/mouth exam - Pulmonary Pulmonary: no respiratory distress - Cardiovascular Cardiovascular: regular rate and rhythym - ASA Status ASA Status: II ANE Anesthesia Plan Total IV Anesthesia: Yes
[2017-09-22] MEDS ORDERED: PROPOFOL/EMULSION 500 MG/50 ML BOTTLE IV ONE (08:57)
[2017-09-22] MEDS ORDERED: PROMETHAZINE HCL 25 MG SUPPR PR PRN (09:30)
[2017-09-22] MEDS ORDERED: METOCLOPRAMIDE 10 MG/2 ML VIAL IVP PRN (09:30)
[2017-09-22] MEDS ORDERED: ONDANSETRON DISINTEGRATING 4 MG TAB PO PRN (09:30)
[2017-09-22] MEDS ORDERED: DIPHENOXYLATE/ATROPINE LOMOTIL 1 TAB PO PRN (09:30)
[2017-09-22] MEDS ORDERED: BISACODYL 10 MG SUPP PR PRN (09:30)
[2017-09-22] MEDS ORDERED: LACTULOSE 20 GM/30 ML UDCUP PO PRN (09:30)
[2017-09-22] MEDS ORDERED: diphenhydrAMINE 25 MG CAP PO PRN (09:30)
[2017-09-22] MEDS ORDERED: PROMETHAZINE HCL 25 MG/ML INJ IVP PRN (09:30)
[2017-09-22] MEDS ORDERED: oxyCODONE IR 5 MG TAB PO PRN (09:30)
[2017-09-22] MEDS ORDERED: CYCLOBENZAPRINE 10 MG TAB PO PRN (09:30)
[2017-09-22] MEDS ORDERED: MAGNESIUM HYDROXIDE 30 ML UDCUP PO PRN (09:30)
[2017-09-22] MEDS ORDERED: TEMAZEPAM 15 MG CAP PO PRN (09:30)
[2017-09-22] MEDS ORDERED: ONDANSETRON 4 MG/2 ML VIAL IVP PRN ×2 (09:30→10:27)
[2017-09-22] MEDS ORDERED: POLYETHYLENE GLYCOL 3350 17 GM PKT PO PRN (09:30)
[2017-09-22] MEDS ORDERED: LR 1,000 ML IV SCH (09:30)
--- NOTE | 2017-09-22 10:14 | POSTOPPROG ---
Post Op Note Date of Operation: 09/22/17 Surgeon: Ghada [facility] Clinical Supervisor: cindy salgado Anesthesiologist: dr. peterson Anesthesia: Spinal, Other (Specify) (adductor canal block) Pre-op Diagnosis: left knee OA Post-op Diagnosis: same Indication: left knee pain due to OA that failed conservative measures Procedure: L med MPL robot assisted Findings: severe knee OA Inf/Abcess present in the surg proc area at time of surgery?: No EBL: 50-100
[2017-09-22] MEDS ORDERED: ALBUTEROL 3 ML DEYVIAL IH PRN (10:27)
[2017-09-22] MEDS ORDERED: NALOXONE HCL 0.4 MG/ML INJ IVP PRN (10:27)
[2017-09-22] MEDS ORDERED: fentaNYL 100 MCG/2 ML INJ IVP PRN (10:27)
[2017-09-22] MEDS ORDERED: MEPERIDINE 25 MG/ML SYR IVP PRN (10:27)
--- NOTE | 2017-09-22 10:29 | POSTANESTH ---
Post Anesthetic Evaluation Cardiovascular Status: Similar to Pre-Op Cond Respiratory Status: Similar to Pre-op Cond. Level of Consciousness/Mental Status: Alert and Oriented Pain Control: Adequate, Prn Tx Ordered Nausea/Vomiting Control: Adequate, Prn Tx Ordered Complications Possibly Related to Anesthesia: None Noted
--- NOTE | 2017-09-22 12:04 | CPEKG ---
Heart Rate: 59 RR Interval: 1017 P-R Interval: 184 QRSD Interval: 80 QT Interval: 444 QTC Interval: 440 P [place]: 77 QRS [place]: 6 T Wave [place]: 89 EKG Severity - BORDERLINE ECG - EKG Impression: SINUS RHYTHM EKG Impression: BORDERLINE T WAVE ABNORMALITIES EKG Impression: Paged by nurse to read this stat ECG from 12.02 this afternoon. Told BOB Le EKG Impression: that this ECG is unchanged from 12/06/2016. Electronically Signed By: Raji Subramanian 22-Sep-2017 17:23:57
[2017-09-22 12:34] LABS: CREATINE KINASE 163 IU/L (0-156)
[2017-09-22] MEDS: ACETAMINOPHEN 325 MG TAB PO SCH ×3 (14:35→23:27)
[2017-09-22] MEDS: ceFAZolin 2 GM/DEXTROSE 100 ML IV SCH ×2 (14:36→20:44)
--- NOTE | 2017-09-22 18:13 | GOP ---
[f rep st] OPERATIVE REPORT DATE OF OPERATION: 09/22/2017 SURGEON: Parth Diez MD CROP GRAIN OR LIVESTOCK FARMER: ARUN Louise ANESTHESIA: Spinal. PREOPERATIVE DIAGNOSIS: Left knee osteoarthritis. POSTOPERATIVE DIAGNOSIS: Left knee osteoarthritis. PROCEDURE PERFORMED: , left medial compartment partial knee replacement with computer navigation and robotic assist. FINDINGS: ESTIMATED BLOOD LOSS: 30 cc. INDICATIONS: This is an 82-year old female with progressive pain of the left knee unresponsive to conservative care. Risks and benefits of surgical intervention were explained in detail. DESCRIPTION OF PROCEDURE: The patient was brought to the operating room and placed on the table in supine position. Spinal anesthesia was induced without difficulty. A pneumatic tourniquet was applied about the left proximal thigh and the leg was prepped and draped in sterile fashion. Attention was turned first to the distal aspect of the left femur. At 3 cm proximal to the lateral rise of the femur, 2 percutaneous half pins were placed for fixation of the femoral array. In a similar fashion, 2 pins were placed anterolateral on the tibia for fixation of the tibial array. External land marking and registration of the hip center was performed without difficulty. After exsanguination by elevation, the tourniquet was inflated to 250 mmHg. Incision was made from the tibial tuberosity to the superior pole of the patella. Dissection was carried out through the subcutaneous tissue to the deep fascia using Bovie electrocautery for hemostasis. Medial parapatellar arthrotomy was carried out to the superior pole of the patella. The medial collateral ligament was elevated and the infrapatellar fat pad was resected. Internal femoral and tibial registration was carried out without difficulty and the femoral and tibial checkpoints were placed and verified for accuracy. Attention was turned to the femur. The foot print for the size 4 femoral component was cut with the 6 mm bur using the [employer] robotic system and verified for accuracy against the CT based plan. The hole was cut for the femoral post. In a similar fashion, the 6 mm bur was used to cut the foot print for the size 4 tibial component using the [employer] system and verified for accuracy against the CT based plan. Attention was turned to the posterior aspect of the knee and remnants of the medial meniscus were excised. The posterior capsule was injected with ropivacaine, epinephrine and Toradol. Trial reduction was carried out and there was excellent range of motion, alignment and stability using the size 4 femoral component and the size 4 tibial component, 4 x 9 mm polyethylene. All trials were then removed. The joint was thoroughly irrigated and carefully dried. One package of cement and 1 gram of vancomycin were mixed in the vacuum mixer and placed on the fixation surfaces of all components. The components were implanted and all excess cement was thoroughly removed. Implant placement was verified against the CT view plan and found to be excellent. The tourniquet was deflated and all bleeders were coagulated. The wound was thoroughly irrigated and closed using interrupted sutures of 2-0 Vicryl for the joint capsule. The subcu was closed with 3-0 Vicryl and the skin with 4-0 Monocryl. Dermabond and Steri-Strips were applied, followed by a compressive dressing. The patient was then moved from the operating room to the recovery room in good condition, having tolerated the procedure well. CASE CLASSIFICATION: Clean. /[id number]/MODL MTDD
[2017-09-22] MEDS: FAMOTIDINE 20 MG TAB PO SCH (20:40)
[2017-09-22] MEDS: SENNOSIDES/DOCUSATE SODIUM TAB PO SCH (20:40)
[2017-09-22] MEDS: ASPIRIN 81 MG CHEWABLE TAB PO SCH (20:43)
[2017-09-22] MEDS ORDERED: LISINOPRIL 40 MG TAB PO SCH (21:00)
[2017-09-23] MEDS: ACETAMINOPHEN 325 MG TAB PO SCH (05:16)
[2017-09-23] MEDS ORDERED: ALENDRONATE SODIUM 70 MG TAB PO SCH (07:00)
[2017-09-23 07:16] VITALS: BP 157/71; PULSE 60; RESP 14; TEMP 98; O2SAT 99
[2017-09-23] MEDS: ASPIRIN 81 MG CHEWABLE TAB PO SCH (09:50)
[2017-09-23] MEDS: FAMOTIDINE 20 MG TAB PO SCH (09:50)
[2017-09-23] MEDS: SENNOSIDES/DOCUSATE SODIUM TAB PO SCH (09:51)
--- NOTE | 2017-09-23 12:53 | SOAPPROG ---
SOAP Progress Note Assessment/Plan: Assessment: Plan: 09/23/17 12:53 Patient is doing well POD 1 s/p med MPL Pain management: pain is well controlled on oral pain meds. VTE ppx: recommend aspirin 81 mg BID for 4 weeks, cont JHOAN and SCDs Anemia: level is expected initially postop. Asymptomatic. Continue to monitor D/c planning: d/c to home today pending release from PT Subjective: Sandyha is resting comfortably, denies chest pains now, denies SOB, N/v Objective: Vital Signs Temp Pulse Resp BP Pulse Ox 36.7 C 60 14 157/71 H 99 09/23/17 07:12 09/23/17 07:12 09/23/17 07:12 09/23/17 07:12 09/23/17 07:12 Laboratory Results 09/23/17 04:45 09/22/17 09/23/17 09/24/17 05:59 05:59 05:59 Intake Total 2000 500 Output Total 1400 Balance 600 500 incision dressing is clean and dry, NVI, +pf/df ICD10 Worksheet Patient Problems: Problems Problem Status Onset Hip fracture, right Acute Primary localized osteoarthritis of left knee Acute Primary localized osteoarthritis of right knee Acute
== END 2017-09-23 10:32 | disposition home or self-care (01) ==
LOC: F3N 09-22 07:08 → INTOOBSV 09-22 07:08 → EDSTATUS 09-22 09:15 → F3N 09-22 11:47
PROVIDERS: ADMIT Orthopaedic Surgery; ATTEND Orthopaedic Surgery
PROC: 0SRD0JZ Replacement of Left Knee Joint with Synthetic Substitute, Open Approach (ICD-10-PCS; principal; 2017-09-22 09:15)
DX: M17.12 Unilateral primary osteoarthritis, left knee (principal)
CPT/HCPCS: 27446; 73560; 93005; 97110; 97116; 97161; 97165; C1713; C1776; G8978; G8979; G8987; G8988; G8989; J0171; J0690; J1100; J1885; J2704; J2795; J3370

== ENCOUNTER → 2017-09-08 | Outpatient (CLI) | payer OTHER | LOC: FIMAGING 10:36 | PROVIDERS: ATTEND Orthopaedic Surgery | DX: M17.12 Unilateral primary osteoarthritis, left knee (principal) ==

== ENCOUNTER → 2018-02-07 | Outpatient (CLI) | payer OTHER | LOC: FIMAGING 14:26 | DX: S12.19 Other fracture of second cervical vertebra (principal); M50.121 Cervical disc disorder at C4-C5 level with radiculopathy; M48.02 Spinal stenosis, cervical region; M46.93 Unspecified inflammatory spondylopathy, cervicothoracic region; M48.03 Spinal stenosis, cervicothoracic region ==

== ENCOUNTER → 2018-07-30 | Outpatient (CLI) | payer OTHER | LOC: FIMAGING 10:54 | PROVIDERS: ATTEND Internal Medicine | DX: Z12.31 Encounter for screening mammogram for malignant neoplasm of breast (principal) ==

== ENCOUNTER → 2018-08-04 | Outpatient (CLI) | payer OTHER | LOC: BMCIMAGING 10:27 | PROVIDERS: ATTEND Internal Medicine | DX: Z13.820 Encounter for screening for osteoporosis (principal); M85.89 Other specified disorders of bone density and structure, multiple sites; Z87.81 Personal history of (healed) traumatic fracture ==